=== PATIENT | male | born 1985 | race African-American/Black ===

== ENCOUNTER 2020-10-11 15:20 | Emergency (ER) | payer SELFPAY ==
[2020-10-11 15:27] VITALS: BP 109/95; PULSE 110; RESP 20; TEMP 36.8; O2SAT 100
[2020-10-11] MEDS: TETANUS,DIPHTHERIA,AC PERTUSSIS ADULT (0.5 ML) BOOSTRIX IM (16:43)
[2020-10-11] MEDS: HYDROcodone/acetaminophen (*CRX) 5-325 MG TABLET 1 TAB PO (16:44)
[2020-10-11 16:52] VITALS: BP 119/69; PULSE 98; RESP 18; TEMP 36.7; O2SAT 99
--- NOTE | 2020-10-11 17:20 | ED.GENADULT ---
HPI - General Adult General Chief complaint: Wound/Laceration Stated complaint: 4th 5th finger laceration Time Seen by Provider: 10/11/20 15:39 Source: patient and RN notes reviewed Mode of arrival: ambulatory Limitations: no limitations History of Present Illness HPI narrative: Patient is a 35-year-old male who presents to emergency department for evaluation of skin avulsions of the left distal ring and pinky finger patient was using a cook cold meat when this occurred patient is unsure as to tetanus status patient presents in no distress notes mild aching pain. Related Data Home Medications Medication Instructions Recorded Confirmed No Home Medications 10/11/20 10/11/20 Allergies Allergy/AdvReac Type Severity Reaction Status Date / Time No Known Allergies Allergy Verified 10/11/20 15:30 Review of Systems Review of Systems: All systems reviewed & are unremarkable except as noted in HPI and below PMFSH Social History Social History (Updated 10/11/20 @ 17:23 by Devin Ramachandran PA-C) Smoking status: Never smoker Gender identity (if verbalized by the patient): Male Exam Narrative: GENERAL: Well-appearing, well-nourished, and in no acute distress. HEAD: Normocephalic, atraumatic. EYES: PERRLA and EOMI. ENT: Nares clear, no rhinorrhea or epistaxis. Mucous membranes moist. EXTREMITIES: Normal range of motion. No edema. SKIN: Warm, dry, no rash. Half centimeter skin avulsions of the distal phalanxes of the left ring finger and pinky finger NEURO: No focal deficits. Alert and oriented x3. Cranial nerves II through XII grossly intact. Neurovascularly intact PSYCH: Normal mood and affect. Course Course Emergency Course: Patient's wounds were dressed he was given tetanus he will be discharged home with outpatient follow-up Vital Signs Vital signs: Vital Signs Temperature 98.3 F 10/11/20 15:27 Pulse Rate 110 H 10/11/20 15:27 Respiratory Rate 20 10/11/20 15:27 Blood Pressure 109/95 H 10/11/20 15:27 Pulse Oximetry 100 10/11/20 15:27 Temperature 98.1 F 10/11/20 16:52 Pulse Rate 98 10/11/20 16:52 Respiratory Rate 18 10/11/20 16:52 Blood Pressure 119/69 10/11/20 16:52 Pulse Oximetry 99 10/11/20 16:52 Procedures Other Procedure Procedure 1: Other Procedure: Patient skin avulsions were dressed with LAT and Surgicel with 4 x 4 and Coban placed neurovascularly intact pre and post procedure Medical Decision Making MDM Narrative Medical decision making narrative: Patients injury or pain is consistent with musculoskeletal etiology. No signs of neurological or vascular compromise on exam. Compartments and tisues are soft without signs of compartment syndrome. Pain is felt appropriate for further evaluation on an outpatient basis. Vital Signs Vital Signs: Vital Signs Temperature 98.3 F 10/11/20 15:27 Pulse Rate 110 H 10/11/20 15:27 Respiratory Rate 20 10/11/20 15:27 Blood Pressure 109/95 H 10/11/20 15:27 Pulse Oximetry 100 10/11/20 15:27 Temperature 98.1 F 10/11/20 16:52 Pulse Rate 98 10/11/20 16:52 Respiratory Rate 18 10/11/20 16:52 Blood Pressure 119/69 10/11/20 16:52 Pulse Oximetry 99 10/11/20 16:52 Discharge Plan Discharge Clinical Impression: Avulsion of skin Patient Disposition: Home, Self-Care Condition: Stable Instructions: Antibiotic Form, Skin Avulsion (ED) Additional Instructions: Follow up with primary care in the next 2-3 days to set up for reevaluation return if symptoms worsen or concerns, any increase in redness swelling pain or fever over 100.5 Follow patient education sheets Clean wound with mild soapy water. Apply antibiotic ointment and clean dressing at least three times daily Prescriptions: No Action No Home Medications RF: 0 Follow-up/Referrals: Demetrius Appiah MD [Physician] - PHYSICIAN,VACUUM FORM OPERATOR [Primary Care Provider] - Stand Alone Forms: Work/School Release IP
[2020-10-11 17:48] VITALS: BP 136/89; PULSE 89; RESP 18; TEMP 36.4; O2SAT 99
== END 2020-10-11 17:48 | disposition home or self-care (01) ==
PROVIDERS: Emergency Provider Emergency Medicine
DX: S61.205A Unspecified open wound of left ring finger without damage to nail, initial encounter (principal); S61.207A Unspecified open wound of left little finger without damage to nail, initial encounter; Z23 Encounter for immunization; W29.0XXA Contact with powered kitchen appliance, initial encounter
CPT/HCPCS: 12001; 90471; 90715; 99283; A9270

== ENCOUNTER 2021-02-02 16:43 | Emergency (ER) | payer SELFPAY ==
--- NOTE | ~2021-02-02 | XR_ITS ---
XR finger 3rd LT min 2V 02/02/2021 17:30 Indication: Left third finger pain Procedure: 4 views left third finger Comparison: No prior studies for comparison. Findings: Normal anatomic alignment. No fracture, subluxation or dislocation. No significant soft tis marichuy abnormality. No foreign bodies. Impression: 1: No acute fracture. Reviewed, dictated and finalized at location A. [facility] Impression: 1: No acute fracture.
[2021-02-02 16:56] VITALS: BP 107/79; PULSE 77; RESP 16; TEMP 37.4; O2SAT 100
--- NOTE | 2021-02-02 17:14 | ED.WOUNDLAC ---
HPI - Wound/Laceration General Chief Complaint: Wound/Laceration Stated Complaint: Laceration on fingers Time Seen by Provider: 02/02/21 17:15 Source: patient, RN notes reviewed and old records reviewed Mode of arrival: ambulatory Limitations: no limitations History of Present Illness HPI narrative: 35-year-old male presents to the [facility] with lacerations to his fingers. Fingers 3 and 4 both at the DIP joint. Bleeding is controlled Last Tdap was October 11, 2020 Related Data Home Medications Medication Instructions Recorded Confirmed No Home Medications 10/11/20 02/02/21 Allergies Allergy/AdvReac Type Severity Reaction Status Date / Time No Known Allergies Allergy Verified 02/02/21 16:54 Review of Systems Review of Systems: All systems reviewed & are unremarkable except as noted in HPI and below Constitutional: Constitutional: Reports no additional constitutional complaints, Denies chills and Denies fever(s) Eyes: Eyes: Reports no additional eye complaints ENT: Reports system reviewed and no additional complaints, except as documented Cardiovascular: Cardiovascular: Reports no additional cardiovascular complaints Respiratory: Respiratory: Reports no additional respiratory complaints Gastrointestinal: Gastrointestinal: Reports no additional gastrointestinal complaints Musculoskeletal: Musculoskeletal: Reports no additional musculoskeletal complaints Integumentary/Breasts: Skin/Breast: Reports as per HPI Comments: Laceration Neurologic: Reports system reviewed and no additional complaints, except as documented Psychiatric: Psychiatric: Reports no additional psychiatric complaints Allergic/Immunologic: Allergic/Immunologic: Reports no additional allergic/immunologic complaints PMFSH Past Medical History Medical History (Updated 02/03/21 @ 18:57 by Katt Narayanan) No significant medical problems Surgical History Surgical History (Updated 02/03/21 @ 18:57 by Katt Narayanan) No significant past surgical history Social History Social History (Updated 02/03/21 @ 18:57 by Katt Narayanan) Smoking status: Never smoker Substance use type: marijuana Gender identity (if verbalized by the patient): Male Comments At the time of my signature, I reviewed and agree with the nursing past medical, surgical, social, and family history. There is no relevant family history pertinent to the patient complaint. Exam Const: General: healthy appearing, no acute distress and alert Nutritional Appearance: well nourished Orientation/consciousness: patient oriented x3 Limitations: no limitations HENMT: Head: normal to inspection Eyes: Pupils: Equal, round and reactive pupils present Neck: Neck: normal visual inspection, no lymphadenopathy and no meningeal signs Chest: Chest palpation & inspection: normal inspection of the chest Resp: Effort & Inspection: normal respiratory effort and no use of accessory muscles Auscultation: clear to auscultation bilaterally, no rales, no rhonchi and no wheezes Cardio: Rate: regular rate Rhythm: regular rhythm Back/Spine/Pelvis: Back: no CVA tenderness Skin: General skin exam: normal color Rashes: no rashes Wounds: wounds noted laceration left no drainage and without any surrounding erythema Neuro: General: patient oriented x3, moves all extremities and no meningeal signs Cranial nerves: Yes Nystagmus not present Speech: normal speech Gait exam (Neuro): Normal gait present Extrem: General: normal to inspection Course Course Emergency Course: Discharge instructions reviewed with patient, as well as provided in writing per nursing staff. The instructions also include specific and strict return/GO TO THE ER as well as f/u information. All questions have been answered, and the patient deny any further questions with discharge and discharge plan. Vital Signs Vital signs: Vital Signs Temperature 99.3 F 02/02/21 16:56 Pulse Rate 77 02/02/21 16:5
== END 2021-02-02 18:06 | disposition home or self-care (01) ==
PROVIDERS: Emergency Provider Nurse Practitioner
DX: S61.211A Laceration without foreign body of left index finger without damage to nail, initial encounter (principal); S61.213A Laceration without foreign body of left middle finger without damage to nail, initial encounter; X58.XXXA Exposure to other specified factors, initial encounter
CPT/HCPCS: 12001; 73140; 99213; G0463

== ENCOUNTER 2021-03-29 01:40 | Emergency (ER) | payer SELFPAY ==
[2021-03-29 01:48] VITALS: BP 122/94; PULSE 100; RESP 18; TEMP 36.1; O2SAT 100
--- NOTE | 2021-03-29 02:36 | ED.GENADULT ---
HPI - General Adult General Chief complaint: Wound/Laceration Stated complaint: finger laceration Time Seen by Provider: 03/29/21 02:07 History of Present Illness HPI narrative: Patient 35-year-old gentleman who presents emerged from with chief complaint of left hand injury. Patient reports he was cutting up food and sliced the top of his middle and index finger on his left hand. The patient reports he is right-hand dominant reports that there is a 1 cm diameter avulsion to the DIP joint of the left hand and the PIP area of the left index finger. Related Data Home Medications Medication Instructions Recorded Confirmed No Home Medications 10/11/20 02/02/21 Allergies Allergy/AdvReac Type Severity Reaction Status Date / Time No Known Allergies Allergy Verified 03/29/21 01:51 Review of Systems Review of Systems: A 10 system review of systems was completed on the patient and is negative except for what is stated in the HPI. Nursing and ancillary documentation was reviewed. [facility] Past Medical History Medical History No significant medical problems Surgical History Surgical History No significant past surgical history Social History Social History Smoking status: Never smoker Substance use type: marijuana Gender identity (if verbalized by the patient): Male Exam Narrative: GENERAL: Well-appearing, well-nourished, and in no acute distress. HEAD: Normocephalic, atraumatic. EYES: PERRLA and EOMI. ENT: Nares clear, no rhinorrhea or epistaxis. Mucous membranes moist. NECK: Supple. CHEST: Clear to auscultation. No respiratory distress. HEART: Regular rate and rhythm. No murmur heard. Normal peripheral pulses. ABDOMEN: Soft, nontender, nondistended, normal active bowel sounds. EXTREMITIES: Normal range of motion. No edema. There is a 1 cm avulsion to the dorsum of the left middle finger there is 1/2 cm avulsion to the dorsum of the index finger of the left hand. SKIN: Warm, dry, no rash. NEURO: No focal deficits. Alert and oriented x3. PSYCH: Normal mood and affect. Course Course Emergency Course: The patient's tetanus status is up-to-date The wounds did not require closure Feet wounds were dressed with Surgicel to facilitate bleeding control. Vital Signs Vital signs: Vital Signs Temperature 36.1 C L 03/29/21 01:48 Pulse Rate 100 03/29/21 01:48 Respiratory Rate 18 03/29/21 01:48 Blood Pressure 122/94 H 03/29/21 01:48 Pulse Oximetry 100 03/29/21 01:48 Temperature 36.1 C L 03/29/21 01:48 Pulse Rate 100 03/29/21 01:48 Respiratory Rate 18 03/29/21 01:48 Blood Pressure 122/94 H 03/29/21 01:48 Pulse Oximetry 100 03/29/21 01:48 Medical Decision Making Vital Signs Vital Signs: Vital Signs Temperature 36.1 C L 03/29/21 01:48 Pulse Rate 100 03/29/21 01:48 Respiratory Rate 18 03/29/21 01:48 Blood Pressure 122/94 H 03/29/21 01:48 Pulse Oximetry 100 03/29/21 01:48 Temperature 36.1 C L 03/29/21 01:48 Pulse Rate 100 03/29/21 01:48 Respiratory Rate 18 03/29/21 01:48 Blood Pressure 122/94 H 03/29/21 01:48 Pulse Oximetry 100 03/29/21 01:48 Discharge Plan Discharge Clinical Impression: Avulsion of skin Patient Disposition: Home, Self-Care Condition: Stable Instructions: Antibiotic Form, Skin Avulsion (ED) Prescriptions: No Action No Home Medications RF: 0 Follow-up/Referrals: PHYSICIAN,APPLICATIONS INTERN [Primary Care Provider] - Demetrius Appiah MD [Physician] - Time of Disposition: 02:38
[2021-03-29] MEDS: CELLULOSE OXIDIZED 2 x 3 INCH 1 PKT XX (02:42)
== END 2021-03-29 02:47 | disposition home or self-care (01) ==
PROVIDERS: Emergency Provider Emergency Medicine
DX: S61.203A Unspecified open wound of left middle finger without damage to nail, initial encounter (principal); S61.201A Unspecified open wound of left index finger without damage to nail, initial encounter; W26.9XXA Contact with unspecified sharp object(s), initial encounter; Y93.G1 Activity, food preparation and clean up
CPT/HCPCS: 99282